=== PATIENT | female | born 2000 | race African-American/Black ===

== ENCOUNTER 2025-03-03 09:49 | Emergency (ER) | payer OTHER ==
[2025-03-03] MEDS ORDERED: diphenhydrAMINE 50 MG/ML VIAL ONE (10:11)
[2025-03-03] MEDS ORDERED: Prochlorperazine 10 MG/2 ML VIAL ONE (10:11)
[2025-03-03 10:51] LABS: #Basophils 0.03 10x3/uL (0.0-0.2); #Eosinophils Less than 0.03 10x3/uL (0.0-0.5); #Monocytes 0.58 10x3/uL (0.0-1.1); #Neutrophils 10.33 10x3/uL (1.5-8.4); %Basophils 0.2 % (0.0-2.0); %Eosinophils 0.1 % (0.0-6.0); %Lymphocytes 11.9 % (18.0-47.0); %Monocytes 4.6 % (0.0-10.0); %Neutrophils 82.8 % (40.0-75.0); Hematocrit 34.5 % (34.9-44.5); Hemoglobin 12.4 g/dL (12.0-15.5); Mean Corpuscular Hemoglobin 33.4 pg (27.0-33.0); Mean Corpuscular Volume 93.0 fL (81.6-98.3); Platelet Count 297 10x3/uL (150-450); Red Blood Cell (RBC) Count 3.71 10x6/uL (3.90-5.03); White Blood Cell (WBC) Count 12.48 10x3/uL (3.5-10.5)
[2025-03-03 11:09] LABS: BHCG - Serum POSITIVE (NEGATIVE); Pregs Control Background? CLEAR/WHITE (CLR/WHITE); Pregs Control Bar Appear? YES (CONTROL BAR)
[2025-03-03 11:18] LABS: ALT (SGPT) Less than 7 U/L (Less than 34); AST (SGOT) 14 U/L (11-34); Albumin 4.1 g/dL (3.1-4.5); Alkaline Phosphatase 33 U/L (40-110); Anion Gap 15 mmol/L (10-20); BUN (Urea Nitrogen) 13 mg/dL (7.0-18.7); Bilirubin, Total 0.6 mg/dL (0.3-1.2); Calc. Creatinine Clearance 0 mL/min (70-130); Calcium 9.9 mg/dL (7.8-10.44); Carbon Dioxide 24 mmol/L (22-29); Chloride 98 mmol/L (98-107); Globulin 3.4 g/dL (2.4-3.5); Glucose 87 mg/dL (70-105); Potassium 3.1 mmol/L (3.5-5.1); Sodium 134 mmol/L (136-145)
== END 2025-03-03 12:43 | disposition home or self-care (01) ==
LOC: CSHERS 09:49
DX: O21.1 Hyperemesis gravidarum with metabolic disturbance (principal); Z3A.12 12 weeks gestation of pregnancy
CPT/HCPCS: 36415; 80053; 83605; 84703; 85025; 96374; 96375; J0780; J1200

== ENCOUNTER 2025-04-07 21:16 | Observation (INO) | payer OTHER ==
[2025-04-07] MEDS ORDERED: hydrALAZINE 20 MG/ML VIAL SLOW IVP PRN (21:46)
[2025-04-07 21:55] LABS: Glucose, Urine (Dipstick) Normal (Negative); Leukocyte 25 (Negative); Protein, Urine (Dipstick) 30 mg/dl (Neg-Trace); Specific Gravity, Urine 1.010 (1.005-1.030)
[2025-04-07] MEDS ORDERED: Ondansetron PF 4 MG/2 ML Vial IVP SCH (22:00)
[2025-04-07 22:15] LABS: Bacteria/HPF 2+ HPF (None Seen); Mucous/LPF 3+ LPF (<2+); RBC/HPF 0-3 HPF (0-3)
[2025-04-07 22:30] VITALS: BMI 20.4
[2025-04-07 22:30] LABS: #Basophils Less than 0.03 10x3/uL (0.0-0.2); #Eosinophils Less than 0.03 10x3/uL (0.0-0.5); #Monocytes 0.68 10x3/uL (0.0-1.1); #Neutrophils 12.15 10x3/uL (1.5-8.4); %Basophils 0.1 % (0.0-2.0); %Eosinophils 0.1 % (0.0-6.0); %Lymphocytes 9.2 % (18.0-47.0); %Monocytes 4.8 % (0.0-10.0); %Neutrophils 85.2 % (40.0-75.0); Hematocrit 31.3 % (34.9-44.5); Hemoglobin 10.9 g/dL (12.0-15.5); Mean Corpuscular Hemoglobin 34.3 pg (27.0-33.0); Mean Corpuscular Volume 98.4 fL (81.6-98.3); Platelet Count 298 10x3/uL (150-450); Red Blood Cell (RBC) Count 3.18 10x6/uL (3.90-5.03); White Blood Cell (WBC) Count 14.25 10x3/uL (3.5-10.5)
[2025-04-07 22:44] LABS: ALT (SGPT) Less than 4 U/L (Less than 34); AST (SGOT) 15 U/L (11-34); Albumin 3.7 g/dL (3.1-4.5); Alkaline Phosphatase 37 U/L (40-110); Anion Gap 14 mmol/L (10-20); BUN (Urea Nitrogen) 7 mg/dL (7.0-18.7); Bilirubin, Total 0.4 mg/dL (0.3-1.2); Calc. Creatinine Clearance 129 mL/min (70-130); Calcium 9.2 mg/dL (7.8-10.44); Carbon Dioxide 23 mmol/L (22-29); Chloride 105 mmol/L (98-107); Globulin 3.4 g/dL (2.4-3.5); Glucose 93 mg/dL (70-105); Potassium 3.9 mmol/L (3.5-5.1); Sodium 138 mmol/L (136-145)
[2025-04-07] MEDS ORDERED: CEFAZOLIN 1 GM VIAL ONE (23:40)
[2025-04-08] MEDS: cefTRIAXone\\ROCEPHIN 1 GM in Sodium Chloride 0.9% 100 ML IVPB SCH (00:42)
[2025-04-08] MEDS ORDERED: Acetaminophen 500 MG TAB PO PRN (01:53)
[2025-04-08] MEDS ORDERED: Ondansetron PF 4 MG/2 ML Vial IVP PRN (01:56)
[2025-04-08] MEDS: HYDROcodone/Acetaminophen 5/325 mg Tablet PO PRN (03:35)
[2025-04-08 11:08] VITALS: BP 109/69; TEMP 98.4
== END 2025-04-08 11:55 | disposition left against medical advice (07) ==
LOC: CSHLD/OP 21:16 → CSHLD 04-08 02:15 → INTOOBSV 04-08 02:15 → CSHPED 04-08 02:38
PROVIDERS: ADMIT Family Medicine; ATTEND Family Medicine
DX: O99.891 Other specified diseases and conditions complicating pregnancy (principal); R10.A0 Flank pain, unspecified side; Z3A.19 19 weeks gestation of pregnancy; Z79.899 Other long term (current) drug therapy
CPT/HCPCS: 76770; 76815; 80053; 81003; 81015; 85025; 96360; 96361; 96365; 96375; 99285; J0690; J0696; J2270